=== PATIENT | female | born 1955 | race Caucasian/White ===

== ENCOUNTER 2020-02-01 05:24 | Observation (INO) | payer OTHER ==
[2020-02-01] MEDS ORDERED: MORPHINE 2 MG/ML SYR ONE (06:08)
[2020-02-01] MEDS ORDERED: ONDANSETRON 4 MG/2 ML VIAL ONE (06:08)
[2020-02-01 06:15] LABS: Protime INR 0.94
[2020-02-01 06:26] LABS: Basophils % 0.6 % (0-1.3); Hematocrit 41.5 % (36.0-45.0); Lymphocytes % 30.3 % (15.3-44.8); MPV 9.1 fL (7.6-11.3); RBC Red Blood Cell Count 4.66 M/uL (3.86-4.86)
[2020-02-01 06:35] LABS: ALT/SGPT 20 U/L (12-78); AST/SGOT 18 U/L (15-37); Albumin 3.5 g/dL (3.4-5.0); Alkaline Phosphatase 57 U/L (45-117); BUN Blood Urea Nitrogen 18 mg/dL (7-18); Bicarbonate 22 mmol/L (21-32); Bilirubin Direct < 0.1 mg/dL (0-0.2); Bilirubin Total 0.4 mg/dL (0.2-1.0); Glucose Level 94 mg/dL (74-106); NT PRO-BNP 80 pg/mL (<125); Potassium 3.6 mmol/L (3.5-5.1); Protein, Total 6.6 g/dL (6.4-8.2); Sodium Level 139 mmol/L (136-145); Troponin (Emerg Dept Use Only) < 0.02 ng/mL (0.0-0.045)
--- NOTE | 2020-02-01 07:12 | ER ---
Nurse's Notes [facility] Name: Vivi Nance Age: 64 yrs Sex: Female : 1955 Arrival Date: 02/01/2020 Time: 05:25 Bed 6 Private MD: Diagnosis: Chest pain, unspecified Presentation: 01/31 05:35 Chief complaint: Patient states: I am having chest pain on and off going to my left arm rr5 and left shoulder blade started 8PM last night. 05:35 Coronavirus screen: Patient denies shortness of breath or difficulty breathing. Patient rr5 denies measured and/or subjective temperature greater than 100.4F prior to today's visit. Patient denies travel on a cruise ship or to a country the [facility] currently lists as an affected area. Patient denies contact with known and/or suspected case of COVID-19. Proceed with normal triage. Ebola Screen: Patient negative for fever greater than or equal to 101.5 degrees Fahrenheit, and additional compatible Ebola Virus Disease symptoms Patient denies exposure to infectious person. Patient denies travel to an Ebola-affected area in the 21 days before illness onset. Initial Sepsis Screen: Does the patient meet any 2 criteria? No. Patient's initial sepsis screen is negative. Does the patient have a suspected source of infection? No. Patient's initial sepsis screen is negative. Risk Assessment: Do you want to hurt yourself or someone else? Patient reports no desire to harm self or others. Onset of symptoms was January 31, 2020 at 20:00. 05:35 Method Of Arrival: Ambulatory rr5 05:35 Acuity: EVIE 3 rr5 Historical: - Allergies: 05:35 No Known Allergies; rr5 - Home Meds: 05:35 clopidogrel 75 mg oral tab 1 tab once daily [Active]; nadolol 40 mg oral tab [Active]; rr5 estradiol 1 mg Oral tab [Active]; hydrochlorothiazide 25 mg Oral tab [Active]; - PMHx: 05:35 mitral valve prolapse; rr5 - PSHx: 05:35 Hysterectomy; cataract; rr5 - Immunization history:: Adult Immunizations up to date. - Social history:: Smoking status: Patient reports the use of cigarette tobacco products, smokes one-half pack cigarettes per day, Patient uses alcohol, occasionally. Patient/guardian denies using street drugs. Screenin:47 Abuse screen: Denies threats or abuse. Denies injuries from another. Nutritional rr5 screening: No deficits noted. Tuberculosis screening: No symptoms or risk factors identified. Fall Risk IV access (20 points). Total Phelan Fall Scale indicates No Risk (0-24 pts). Assessment: 05:35 General: Appears in no apparent distress. uncomfortable, Behavior is calm, cooperative, rr5 appropriate for age. 05:35 Pain: Complains of pain in left side chest Pain radiates to left scapular area and left rr5 arm Pain currently is 5 out of 10 on a pain scale. Quality of pain is described as pressure, Pain began gradually, Is intermittent. Neuro: Level of Consciousness is awake, alert, obeys commands, Oriented to person, place, time, situation. Cardiovascular: Reports chest pain, Capillary refill < 3 seconds Patient's skin is warm and dry. Respiratory: Airway is patent Respiratory effort is even, unlabored, Respiratory pattern is regular, symmetrical. GI: No signs and/or symptoms were reported involving the gastrointestinal system. : No signs and/or symptoms were reported regarding the genitourinary system. EENT: No signs and/or symptoms were reported regarding the EENT system. Derm: Skin is intact, is healthy with good turgor, Skin temperature is warm. Musculoskeletal: Circulation, motion, and sensation intact. Capillary refill < 3 seconds. 06:21 Reassessment: Del Nance () [id number]. rr5 07:00 Reassessment: RECD REPORT FROM KEEGAN DAY. 64YO WF P/W CP. CURRENT WORK-UP COMPLETED, bp INITIAL RESULTS UNREMARKABLE. 07:16 Reassessment: Patient is alert, oriented x 3, equal unlabored respirations, skin aa5 warm/dry/pink. Alexis Galicia NP (hospitalist) at bedside speaking to patient about POC upon admission to hospital. . 07:30 Reassessment: PT SEEN BY HOSPITALIST, ADMIT INITIATED. bp 07:56 Reassessment: Patient is alert, oriented x 3, equal unlabored respirations, skin aa5 warm/dry/pink. Ordered breakfast tray for patient. Pt sitting up in bed, states no complaints at this time. . 08:00 Reassessment: DR LIVE, CARDIOLOGY, AT B/S. bp 08:11 Reassessment: PER DR LIVE, PT CLEAR FOR D/C WITH OUTPATIENT F/U IF SECOND TROPONIN bp NEGATIVE AT 0900. 10:30 Reassessment: SECOND TROPONIN NEGATIVE, HOSPITALIST NOTIFIED. D/C PENDING. bp 11:11 Reassessment: Patient is alert, oriented x 3, equal unlabored respirations, skin aa5 warm/dry/pink. Vital Signs: 05:35 BP 146 / 66; Pulse 51; Resp 19; Temp 97.7; Pulse Ox 100% ; Weight 68.95 kg; Height 5 rr5 ft. 6 in. (167.64 cm); Pain 5/10; 06:09 BP 128 / 71; Pulse 55; Resp 16; Pulse Ox 96% ; rr5 06:47 BP 122 / 74; Pulse 51; Resp 14; Pulse Ox 96% ; Pain 3/10; rr5 08:01 BP 157 / 83; Pulse 50; Resp 16; Pulse Ox 98% ; bp 09:00 BP 127 / 60; Pulse 57; Resp 14; Pulse Ox 98% ; bp 10:00 BP 128 / 65; Pulse 54; Resp 16; Temp 97.9; Pulse Ox 96% ; bp 11:00 BP 127 / 83; Pulse 54; Resp 16 S; Temp 97.5(TE); Pulse Ox 96% on R/A; Pain 0/10; aa5 05:35 Body Mass Index 24.53 (68.95 kg, 167.64 cm) rr5 ED Course: 05:25 Patient arrived in ED. ds1 05:28 Andrew Bautista, BARB is Primary Nurse. rr5 05:41 Triage completed. rr5 05:43 Arm band placed on right wrist. EKG completed in triage. Results shown to MD. rr5 05:44 Jarek Blancas MD is Attending Physician. mh7 05:47 Patient has correct armband on for positive identification. Placed in gown. Bed in low rr5 position. classroom monitor on. Pulse ox on. NIBP on. 05:47 Patient maintains SpO2 saturation greater than 95% on room air. rr5 05:57 EKG done, by ED staff, reviewed by Jarek Blancas MD. Inserted saline lock: 20 gauge in ds4 left wrist, using aseptic technique. Blood collected. 06:01 Troponin (emerg Dept Use Only) Sent. ds4 06:01 PT-INR Sent. ds4 06:01 NT PRO-BNP Sent. ds4 06:05 XRAY Chest (1 view) In Process Unspecified. EDMS 07:11 Alexis Galicia FNP-C is Hospitalizing Provider. 7 09:23 Troponin (emerg Dept Use Only) Sent. 5 09:42 Primary Nurse role handed off by Andrew Bautista, BARB 09:42 Deshawn Barragan, RN is Primary Nurse. bp 10:00 Patient admitted, IV remains in place. aa5 10:00 No provider procedures requiring assistance completed. aa5 Administered Medications: 06:05 Drug: Zofran (Ondansetron) 4 mg Route: IVP; Site: left forearm; rr5 06:46 Follow up: Response: No adverse reaction rr5 06:07 Drug: morphine 2 mg {Note: rass 0.} Route: IVP; Site: left forearm; rr5 06:46 Follow up: Response: No adverse reaction; Pain is decreased; RASS: Alert and Calm (0) rr5 07:17 Drug: Aspirin Chewable Tablet 162 mg Route: PO; aa5 07:31 Follow up: Response: No adverse reaction bp Outcome: 07:11 Decision to Hospitalize by Provider. mh7 10:00 Admitted to ER Hold. Please see [facility] for further documentation. aa5 10:00 Condition: stable aa5 10:00 Instructed on the need for admit. 11:11 Patient left the ED. aa5 Signatures: Dispatcher [facility] Sheila Aaron ds1 Ana Ross RN RN aa5 Gaudencio Lyon ds4 Pennie Marks 5 Deshawn Barragan, BARB RN Andrew Bautista, BARB RN rr5 Jarek Blancas MD MD 7 Corrections: (The following items were deleted from the chart) 11:22 11:22 Patient left the ED. aa5 aa5
--- NOTE | 2020-02-01 07:12 | EDPHYS ---
Physician Documentation [facility] Name: Vivi Nance Age: 64 yrs Sex: Female : 1955 Arrival Date: 02/01/2020 Time: 05:25 Bed 6 Private MD: ED Physician Jarek Blancas HPI: 01/31 05:55 This 64 yrs old Female presents to ER via Ambulatory with complaints of Chest mh7 Pain. 05:55 The patient or guardian reports chest pain that is located primarily in the anterior mh7 chest wall, left. Onset: last night. The pain radiates to the left arm. Associated signs and symptoms: Pertinent positives: nausea, shortness of breath, Pertinent negatives: abdominal pain, cough, diaphoresis, dizziness, headache, lower extremity pain, lower extremity swelling, lightheadedness, near syncope, palpitations, recent travel, syncope, vomiting. The chest pain is described as a pressure. Duration: The patient or guardian reports multiple episodes, that are intermittent, that wax and wane, with no pattern. Modifying factors: The symptoms are alleviated by nothing. the symptoms are aggravated by nothing. Severity of pain: At its worst the pain was moderate last night, in the emergency department the pain has improved moderately. Historical: - Allergies: 05:35 No Known Allergies; rr5 - Home Meds: 05:35 clopidogrel 75 mg oral tab 1 tab once daily [Active]; nadolol 40 mg oral tab [Active]; rr5 estradiol 1 mg Oral tab [Active]; hydrochlorothiazide 25 mg Oral tab [Active]; - PMHx: 05:35 mitral valve prolapse; rr5 - PSHx: 05:35 Hysterectomy; cataract; rr5 - Immunization history:: Adult Immunizations up to date. - Social history:: Smoking status: Patient reports the use of cigarette tobacco products, smokes one-half pack cigarettes per day, Patient uses alcohol, occasionally. Patient/guardian denies using street drugs. ROS: 05:55 Constitutional: Negative for fever, chills, and weight loss, Eyes: Negative for injury, mh7 pain, redness, and discharge, ENT: Negative for injury, pain, and discharge, Neck: Negative for injury, pain, and swelling, Back: Negative for injury and pain, : Negative for injury, bleeding, discharge, and swelling, MS/Extremity: Negative for injury and deformity, Skin: Negative for injury, rash, and discoloration, Neuro: Negative for headache, weakness, numbness, tingling, and seizure, Psych: Negative for depression, anxiety, suicide ideation, homicidal ideation, and hallucinations, Allergy/Immunology: Negative for hives, rash, and allergies, Endocrine: Negative for neck swelling, polydipsia, polyuria, polyphagia, and marked weight changes, Hematologic/Lymphatic: Negative for swollen nodes, abnormal bleeding, and unusual bruising. Exam: 05:55 Constitutional: This is a well developed, well nourished patient who is awake, alert, mh7 and in no acute distress. Head/Face: Normocephalic, atraumatic. Eyes: Pupils equal round and reactive to light, extra-ocular motions intact. Lids and lashes normal. Conjunctiva and sclera are non-icteric and not injected. Cornea within normal limits. Periorbital areas with no swelling, redness, or edema. Neck: Trachea midline, no thyromegaly or masses palpated, and no cervical lymphadenopathy. Supple, full range of motion without nuchal rigidity, or vertebral point tenderness. No Meningismus. Chest/axilla: Normal chest wall appearance and motion. Nontender with no deformity. No lesions are appreciated. 05:55 Respiratory: Lungs have equal breath sounds bilaterally, clear to auscultation and percussion. No rales, rhonchi or wheezes noted. No increased work of breathing, no retractions or nasal flaring. Abdomen/GI: Soft, non-tender, with normal bowel sounds. No distension or tympany. No guarding or rebound. No evidence of tenderness throughout. Back: No spinal tenderness. No costovertebral tenderness. Full range of motion. Skin: Warm, dry with normal turgor. Normal color with no rashes, no lesions, and no evidence of cellulitis. MS/ Extremity: Pulses equal, no cyanosis. Neurovascular intact. Full, normal range of motion. Neuro: Awake and alert, GCS 15, oriented to person, place, time, and situation. Cranial nerves II-XII grossly intact. Motor strength 5/5 in all extremities. Sensory grossly intact. Cerebellar exam normal. Normal gait. Psych: Awake, alert, with orientation to person, place and time. Behavior, mood, and affect are within normal limits. 05:55 Cardiovascular: Rate: bradycardic, Rhythm: regular, Pulses: no pulse deficits are appreciated, Heart sounds: normal, normal S1and S2, Edema: is not appreciated, JVD: is not appreciated. 05:55 ECG was reviewed by the Attending Physician. Vital Signs: 05:35 BP 146 / 66; Pulse 51; Resp 19; Temp 97.7; Pulse Ox 100% ; Weight 68.95 kg; Height 5 rr5 ft. 6 in. (167.64 cm); Pain 5/10; 06:09 BP 128 / 71; Pulse 55; Resp 16; Pulse Ox 96% ; rr5 06:47 BP 122 / 74; Pulse 51; Resp 14; Pulse Ox 96% ; Pain 3/10; rr5 08:01 BP 157 / 83; Pulse 50; Resp 16; Pulse Ox 98% ; bp 09:00 BP 127 / 60; Pulse 57; Resp 14; Pulse Ox 98% ; bp 10:00 BP 128 / 65; Pulse 54; Resp 16; Temp 97.9; Pulse Ox 96% ; bp 11:00 BP 127 / 83; Pulse 54; Resp 16 S; Temp 97.5(TE); Pulse Ox 96% on R/A; Pain 0/10; aa5 05:35 Body Mass Index 24.53 (68.95 kg, 167.64 cm) rr5 MDM: 05:51 Patient medically screened. [facility] 07:08 Differential diagnosis: acute myocardial infarction, acute pericarditis, anxiety, mh7 coronary artery disease chest wall pain, costochondritis, pleurisy, pneumonia, pneumothorax. HEART Score: History: Highly Suspicious (2), ECG: Normal (0), Age: > 45 and < 65 years (1), Risk Factors: 1 or 2 risk factors (1), [Active Smoker] Troponin: < or = 1 x Normal Limit (0), Total Score = 4. Data reviewed: vital signs, nurses notes, lab test result(s), cardiac enzymes, CBC, electrolytes, EKG, radiologic studies, plain films. Data interpreted: Pulse oximetry: on room air is 96 %. Interpretation: normal. 07:10 Counseling: I had a detailed discussion with the patient and/or guardian regarding: the [facility] historical points, exam findings, and any diagnostic results supporting the discharge/admit diagnosis, lab results, radiology results, the need for further work-up and treatment in the hospital. Response to treatment: the patient's symptoms have mildly improved after treatment. 07:11 The patient was given aspirin in the Emergency Department. mh7 01/31 05:44 Order name: Basic Metabolic Panel; Complete Time: 06:40 rr5 01/31 05:44 Order name: CBC with Diff; Complete Time: 06:40 rr5 01/31 05:44 Order name: LFT's; Complete Time: 06:40 rr5 01/31 05:44 Order name: Magnesium; Complete Time: 06:40 rr5 01/31 05:44 Order name: NT PRO-BNP; Complete Time: 06:40 rr5 01/31 05:44 Order name: PT-INR; Complete Time: 06:40 rr5 01/31 05:44 Order name: Troponin (emerg Dept Use Only); Complete Time: 06:40 rr5 01/31 05:44 Order name: XRAY Chest (1 view); Complete Time: 10:16 rr5 01/31 05:44 Order name: EKG; Complete Time: 05:45 rr5 01/31 08:10 Order name: Troponin (emerg Dept Use Only) bp 01/31 09:58 Order name: Troponin (Emerg Dept Use Only); Complete Time: 10:16 EDMS 01/31 05:44 Order name: Cardiac monitoring; Complete Time: 06:00 rr5 01/31 05:44 Order name: EKG - Nurse/Tech; Complete Time: 06:00 rr5 01/31 05:44 Order name: IV Saline Lock; Complete Time: 06:00 rr5 01/31 05:44 Order name: Labs collected and sent; Complete Time: 06:00 rr5 01/31 05:44 Order name: O2 Per Protocol; Complete Time: 06:00 rr5 01/31 05:44 Order name: O2 Sat Monitoring; Complete Time: 06:00 rr5 01/31 07:56 Order name: Diet Regular; Complete Time: 07:57 aa5 EC:55 Rate is 53 beats/min. Rhythm is regular, Sinus bradycardia. QRS Eleva is Normal. OR mh7 interval is normal. QRS interval is normal. QT interval is normal. No Q waves. T waves are Normal. No ST changes noted. Clinical impression: Sinus bradycardia. Administered Medications: 06:05 Drug: Zofran (Ondansetron) 4 mg Route: IVP; Site: left forearm; rr5 06:46 Follow up: Response: No adverse reaction rr5 06:07 Drug: morphine 2 mg {Note: rass 0.} Route: IVP; Site: left forearm; rr5 06:46 Follow up: Response: No adverse reaction; Pain is decreased; RASS: Alert and Calm (0) rr5 07:17 Drug: Aspirin Chewable Tablet 162 mg Route: PO; aa5 07:31 Follow up: Response: No adverse reaction bp Disposition: 02/01/20 07:11 Hospitalization ordered by Alexis Galicia for Observation. Preliminary diagnosis is Chest pain, unspecified. - Bed requested for Telemetry/MedSurg (observation). - Status is Observation. aa5 - Condition is Stable. - Problem is new. - Symptoms have improved. Signatures: Dispatcher [employer] EDMS Christian Montelongo MD MD cha Calderon, Audri RN RN aa5 Santino Matias RN RN ja1 Kina Maya Raymond, RN RN rr5 Jarek Blancas MD MD 7 Deshawn Barragan RN bp Corrections: (The following items were deleted from the chart) 08:53 07:11 Hospitalization Ordered by Alexis CHAUDHARY for Observation. Preliminary eb diagnosis is Chest pain, unspecified. Bed requested for Telemetry/MedSurg (observation). Status is Observation. Condition is Stable. Problem is new. Symptoms have improved. [facility] 10:02 08:53 02/01/2020 07:11 Hospitalization Ordered by Alexis CHAUDHARY for Observation. ja1 Preliminary diagnosis is Chest pain, unspecified. Bed requested for Telemetry/MedSurg (observation). Status is Observation. Condition is Stable. Problem is new. Symptoms have improved. eb 11:22 10:02 02/01/2020 07:11 Hospitalization Ordered by Alexis CHAUDHARY for Observation. aa5 Preliminary diagnosis is Chest pain, unspecified. Bed requested for Telemetry/MedSurg (observation). Status is Observation. Condition is Stable. Problem is new. Symptoms have improved. ja1
[2020-02-01] MEDS ORDERED: ASPIRIN 81 MG CHEWABLE TABLET ONE (07:24)
--- NOTE | 2020-02-01 07:39 | P.HP ---
Certification for Inpatient Patient admitted to: Observation With expected LOS: <2 Midnights Patient will require the following post-hospital care: None Practitioner: I am a practitioner with admitting privileges, knowledge of patient current condition, hospital course, and medical plan of care. Services: Services provided to patient in accordance with Admission requirements found in Title 42 Section 412.3 of the Code of Federal Regulations Patient History Date of Service: 02/01/20 Primary Care Provider: Dr. Hernandez Reason for admission: Chest pain History of Present Illness: 64-year-old female with history of mitral valve prolapse and TIA presents the emergency department for 4 day history of intermittent left-sided chest pain that radiates to the left arm. Patient reports that she had similar pain approximately 2 years ago and was admitted for observation. Patient is not since followed up with Cardiology. Patient reports last cardiology workup with stress test and echocardiogram was approximately 20 years ago. Patient currently on Plavix for history of TIA. Initial troponin negative. Patient be admitted for further evaluation and management. Home medications list reviewed: Yes - Past Medical/Surgical History Has patient received pneumonia vaccine in the past: No -: TIA -: Hypertension -: MVP -: Hysterectomy -: Laparoscopy -: Cataract surgery Psychosocial/ Personal History: Patient lives at home with her . - Family History Father -: Heart disease Mother -: Heart disease, Stroke - Social History Smoking Status: Current every day smoker Alcohol use: Yes CD- Drugs: No Caffeine use: Yes Place of Residence: Home Review of Systems 10-point ROS is otherwise unremarkable General: Weakness Cardiovascular: Chest Pain Physical Examination - Physical Exam General: Alert, In no apparent distress, Oriented x3 HEENT: Atraumatic, Normocephalic Neck: Supple Respiratory: Clear to auscultation bilaterally, Normal air movement Cardiovascular: No edema, Normal pulses, Regular rate/rhythm, Normal S1 S2 Capillary refill: <2 Seconds Gastrointestinal: Normal bowel sounds, Soft and benign Musculoskeletal: No contractures, No erythema, No tenderness Integumentary: No significant lesion, No tenderness/swelling, No erythema Neurological: Normal gait, Normal speech, Normal strength at 5/5 x4 extr, Normal tone, Sensation intact - Studies Laboratory Data (last 24 hrs) 02/01/20 05:57: PT 11.1, INR 0.94 02/01/20 05:57: WBC 6.5, Hgb 13.9, Hct 41.5, Plt Count 199 02/01/20 05:57: Sodium 139, Potassium 3.6, BUN 18, Creatinine 0.63, Glucose 94, Magnesium 2.0, Total Bilirubin 0.4, AST 18, ALT 20, Alkaline Phosphatase 57 Assessment and Plan - Plan Assessment Chest pain Hypertension History of TIA Plan Chest pain: Cardiology consult in place, spoke with master welder this morning. Continue patient's Plavix, and aspirin. Continue beta-bandar therapy. Will try and troponins. Patient to remain on telemetry throughout this hospitalization. If troponins are negative and patient is cleared by cardiology anticipate discharge as early as this evening. Will recommend outpatient follow up with cardiology for further investigation. DVT prophylaxis Lovenox 40 mg subcutaneous once daily. Hypertension: Continue patient's beta-bandar History of TIA: Continue patient's beta bandar and Plavix. Discharge Plan: Home Plan to discharge in: 24 Hours - Advance Directives Does patient have a Living Will: No Does patient have a Durable POA for Healthcare: No - Code Status/Comfort Care Code Status Assessed: Yes Critical Care: No Time Spent Managing Pts Care (In Minutes): 55
--- NOTE | 2020-02-01 08:49 | RAD REPORT ---
EXAM DESCRIPTION: RAD - Chest Single View - 02/01/2020 6:05 am CLINICAL HISTORY: CHEST PAIN COMPARISON: None TECHNIQUE: AP portable chest image was obtained 02/01/2020 6:05 am . FINDINGS: Lungs are clear. Heart and vasculature are normal. No measurable pleural effusion and no p neumothorax. No acute bone finding. Patient has a very prominent right convex lower thoracic scoliosi s. No acute aortic findings suspected. IMPRESSION: No acute cardiopulmonary process.
--- NOTE | 2020-02-01 09:40 | CON ---
Date of Consultation: 02/01/2020 Reason For Consultation: Chest pain. History Of Present Illness: Ms. Nance is a 64-year-old white woman, who has a history of mitral valve prolapse, TIA, and COPD. Apparently had some chest pain that is similar to this about 2-3 year s ago and she was ruled out for CA, but no workup was done then. She sees Dr. Kaleb Hernandez in [place] for primary care. She came in with persistent left upper chest pain with some nausea, but no vomitin g, diaphoresis, shortness of breath, palpitation, pedal edema, PND, or orthopnea. She denied fever, chills, or cough. The pain has been persistent for 4 days. It is unrelated to physical activities, food, time of the day, or body position. She is already ruled out for myocardial infarction. Allergies: NONE. Review of Systems: Negative. Social History: Positive for tobacco. Family History: Positive for heart disease on both sides of her family. Medications: At home include nadolol, Plavix, and hydrochlorothiazide. Physical Examination: Vital Signs: Stable. She was afebrile. She was in a sinus rhythm. HEENT: Negative. Neck: Supple with no bruit, lymphadenopathy, JVD, or thyromegaly. Chest: Clear to auscultation and percussion. Cardiac: Regular rhythm and rate. No murmurs, gallops, or rubs. Abdomen: Benign. Extremities: No clubbing, cyanosis, or edema. Diagnostic Data: All normal. Chest x-ray, EKG, troponin, BNP are negative. Impression And Plan: 1.Atypical chest pain in a patient with history of mitral valve prolapse, strong family history of h eart disease, and positive tobacco use. 2.History of chronic obstructive pulmonary disease. 3.History of transient ischemic attack. I am comfortable with Ms. Nance going home today on her home regimen, including her nadolol, hydr ochlorothiazide, and Plavix. I will set her up for an outpatient echocardiogram and a stress Myoview . The case was discussed with her in detail and with Dr. Meeks. AJ/JAEL Voice ID: [id number] Report ID: [id number]
--- NOTE | 2020-02-01 10:13 | P.DS ---
Admission Date: 02/01/20 Discharge Date: 02/01/20 Primary Care Provider: Dr. Hernandez Disposition: ROUTINE DISCHARGE Discharge Condition: GOOD Reason for Admission: Chest pain Consultations: Cardiology- Dr. Sorto Procedures: Chest x-ray FINDINGS: Lungs are clear. Heart and vasculature are normal. No measurable pleural effusion and no pneumothorax. No acute bone finding. Patient has a very prominent right convex lower thoracic scoliosis. No acute aortic findings suspected. IMPRESSION: No acute cardiopulmonary process. Medical problem list Chest pain History of TIA Mitral valve prolapse Hypertension Brief History of Present Illness: 64-year-old female with history of mitral valve prolapse and TIA presents the emergency department for 4 day history of intermittent left-sided chest pain that radiates to the left arm. Patient reports that she had similar pain approximately 2 years ago and was admitted for observation. Patient is not since followed up with Cardiology. Patient reports last cardiology workup with stress test and echocardiogram was approximately 20 years ago. Patient currently on Plavix for history of TIA. Initial troponin negative. Patient be admitted for further evaluation and management. Hospital Course: Patient was admitted for observation this morning. Patient has done well throughout the morning, 2nd troponin came back negative. Cardiology has seen the patient and would prefer to arrange for outpatient workup including stress test and echocardiogram. Patient is amenable Plan, also in stable this time. Recommend daily aspirin in addition to patient's Plavix at this time. Continue beta-bandar therapy. Strict return precautions given for new or worsening symptoms. General: Alert, In no apparent distress HEENT: Atraumatic, PERRLA, EOMI Neck: Supple, JVD not distended Respiratory: Clear to auscultation bilaterally, Normal air movement Cardiovascular: Regular rate/rhythm, Normal S1 S2 Gastrointestinal: Normal bowel sounds, No tenderness Musculoskeletal: No tenderness Integumentary: No rashes Neurological: Normal speech, Normal tone, Normal affect Laboratory Data at Discharge: WBC 6.5 K/uL (4.3-10.9) 02/01/20 05:57 Hgb 13.9 g/dL (12.0-15.0) 02/01/20 05:57 Hct 41.5 % (36.0-45.0) 02/01/20 05:57 Plt Count 199 K/uL (152-406) 02/01/20 05:57 PT 11.1 SECONDS (9.5-12.5) 02/01/20 05:57 INR 0.94 02/01/20 05:57 Sodium 139 mmol/L (136-145) 02/01/20 05:57 Potassium 3.6 mmol/L (3.5-5.1) 02/01/20 05:57 BUN 18 mg/dL (7-18) 02/01/20 05:57 Creatinine 0.63 mg/dL (0.55-1.3) 02/01/20 05:57 Glucose 94 mg/dL (74-106) 02/01/20 05:57 Magnesium 2.0 mg/dL (1.8-2.4) 02/01/20 05:57 Total Bilirubin 0.4 mg/dL (0.2-1.0) 02/01/20 05:57 AST 18 U/L (15-37) 02/01/20 05:57 ALT 20 U/L (12-78) 02/01/20 05:57 Alkaline Phosphatase 57 U/L (45-117) 02/01/20 05:57 Patient Discharge Instructions: 1. Please follow up their primary care doctor to follow up this hospitalization. 2. Please follow up with cardiology clinic for further evaluation. 3. Patient was admitted for observation this morning. Patient has done well throughout the morning, 2nd troponin came back negative. Cardiology has seen the patient and would prefer to arrange for outpatient workup including stress test and echocardiogram. Patient is amenable Plan, also vital signs stable at this time. Recommend daily aspirin in addition to patient's Plavix at this time. Continue beta-bandar therapy. Strict return precautions given for new or worsening symptoms. Diet: AHA Activity: Ad olesya Time spent managing pt's care (in minutes): 55
[2020-02-01 11:34] VITALS: O2SAT 96
[2020-02-01 11:35] VITALS: BP 127/83; TEMP 97.5
--- NOTE | 2020-02-02 07:27 | EKG ---
Test Date: 2020-02-01 Test Time: 05:37:40 Typists Supervisor: LUCILA MEASUREMENT RESULTS: Intervals: Rate: 53 DC: 172 QRSD: 90 QT: 440 QTc: 412 [place]: P: 51 DC: 172 QRS: 37 T: 72 INTERPRETIVE STATEMENTS: Sinus bradycardia Otherwise normal ECG No previous ECG available for comparison Electronically Signed On 02-02-20 07:25:21 CDT by Ousmane Sorto
== END 2020-02-01 11:10 | disposition home or self-care (01) ==
LOC: ER 05:24 → ERHOLD 07:30
PROVIDERS: ADMIT Family Medicine; ATTEND Family Medicine
DX: R07.89 Other chest pain (principal); R00.1 Bradycardia, unspecified; I10 Essential (primary) hypertension; I34.1 Nonrheumatic mitral (valve) prolapse; F17.210 Nicotine dependence, cigarettes, uncomplicated; Z79.02 Long term (current) use of antithrombotics/antiplatelets; Z79.890 Hormone replacement therapy; Z79.899 Other long term (current) drug therapy; Z86.73 Personal history of transient ischemic attack (TIA), and cerebral infarction without residual deficits; Z82.49 Family history of ischemic heart disease and other diseases of the circulatory system; Z87.09 Personal history of other diseases of the respiratory system
CPT/HCPCS: 93005; 85025; 80048; 36415; 83735; 85610; 80076; 84484 ×2; 83880; 71045; 96375; 96374; 99285; J2270; J2405; G0378 ×2

== ENCOUNTER 2020-03-20 06:30 | Day surgery (SDC) | payer OTHER ==
[2020-03-19 12:54] LABS: Absolute Lymphocytes (CBC) 1.5 K/uL (0.7-4.9); Hematocrit 31.6 % (36.0-45.0); Lymphocytes % 21.2 % (15.3-44.8); MPV 7.6 fL (7.6-11.3); RBC Red Blood Cell Count 3.56 M/uL (3.86-4.86)
[2020-03-19 13:06] LABS: Potassium 3.7 mmol/L (3.5-5.1)
--- NOTE | 2020-03-19 13:20 | RAD REPORT ---
EXAM DESCRIPTION: RAD - Chest Pa And Lat (2 Views) - 03/19/2020 12:51 pm CLINICAL HISTORY: pre op, pending left lower leg surgery with wound debridement COMPARISON: Portable January 31 TECHNIQUE: Frontal and lateral views of the chest were obtained. FINDINGS: The lungs are clear. Interstitial pattern matches comparison. Heart size is normal and ce ntral vasculature is within normal limits. No pleural effusion or pneumothorax seen. No acute bony finding noted. Prominent right convex lower thoracic scoliosis again noted. No aortic abnormality. IMPRESSION: No acute cardiopulmonary process. No significant change from comparison.
--- OUTSIDE RECORDS SUMMARY | 2020-03-20 06:33 | XMS REPORT | Clinical Summary ---
:1955 Author Organization [facility] Address [address] [place] [address] Care Team Providers Name Role Phone Jamari Hernanedz MD Primary Care Provider Allergies Active Allergy Reactions Severity Noted Date Comments No Known Drug Allergies 08/31/2015 Other Food Itching Low 06/21/2018 seafood Medications Medication Sig Dispensed Refills Start End Status Date Date estradiol (ESTRACE) 1 1 mg every 0 Active MG tablet evening. 6 Take 1/2 tablet daily multivitamin Take 1 0 Active (THERAGRAN) tablet tablet by mouth every evening. UNABLE TO FIND daily. Tru 0 Act thompson Red UNABLE TO FIND daily. 0 Activ e Tumeric hydroCHLOROthiazide daily. 0 Active (HYDRODIURIL) 25 MG tablet clopidogreL (PLAVIX) 75 TAKE 1 90 tablet 1 Active mg tablet TABLET BY 0 MOUTH EVERY DAY CHANTIX 1 mg tablet TAKE 1 56 tablet 2 Active TABLET (1 MG 0 TOTAL) BY MOUTH 2 (TWO) TIMES A DAY FOR 90 DAYS. TAKE WITH FULL GLASS OF WATER. fluticasone propionate SPRAY 2 16 mL 0 Active (FLONASE) 50 SPRAYS INTO 0 mcg/actuation nasal EACH NOSTRIL spray EVERY DAY nadoloL (CORGARD) 40 MG TAKE 3 270 tablet 0 Active tablet TABLETS BY 0 MOUTH EVERY DAY nadolol (CORGARD) 40 MG TAKE 3 270 tablet 0 06/10 Discontinued tablet TABLETS BY 9 019 (Reorder) MOUTH ONCE DAILY clopidogrel (PLAVIX) 75 Take 1 90 tablet 0 Discontinued mg tablet tablet (75 9 019 (Reorder) mg total) by mouth daily. HYDROcodone-acetaminoph Take 1 90 tablet 0 en (NORCO) 5-325 mg per tablet by 9 019 tablet mouth every 8 (eight) hours as needed for moderate pain for up to 30 days. Max Daily Amount: 3 tablets clopidogrel (PLAVIX) 75 Take 1 90 tablet 0 Discontinued mg tablet tablet (75 9 019 (Reorder) mg total) by mouth daily. nadolol (CORGARD) 40 MG Take 3 270 tablet 0 08/02 Discontinued tablet tablets (120 9 020 (Reorde r) mg total) by mouth daily. clopidogrel (PLAVIX) 75 Take 1 90 tablet 0 Discontinued mg tablet tablet (75 9 020 (Reorder) mg total) by mouth daily. varenicline (CHANTIX Take 0.5 mg 53 tablet 0 Discontinued STARTING MONTH BOX) 0.5 one daily on 0 020 mg (11)- 1 mg (42) days 1-2 and tablet 0.5 mg twice daily on days 4-7. Then 1 mg twice daily for a total of 12 weeks. varenicline (CHANTIX Take 1 60 tablet 2 Discontinued CONTINUING MONTH BOX) 1 tablet (1 mg 0 020 mg tablet total) by mouth 2 (two) times a day for 90 days. Take with full glass of water. nadolol (CORGARD) 40 MG Take 3 270 tablet 3 09/05 Discontinued tablet tablets (120 0 020 mg total) by mouth daily. clopidogreL (PLAVIX) 75 Take 1 90 tablet 3 Discontinued mg tablet tablet (75 0 020 mg total) by mouth daily. nadoloL (CORGARD) 40 MG TAKE 3 90 tablet 2 Discontinued tablet TABLETS BY 0 020 (Reorder) MOUTH DAILY nadoloL (CORGARD) 40 MG Take 3 270 tablet 2 12/01 Discontinued tablet tablets (120 0 020 mg total) by mouth daily. amoxicillin-pot Take 1 14 tablet 0 Expi red clavulanate (AUGMENTIN) tablet by 0 020 875-125 mg per tablet mouth 2 (two) times a day for 7 days. fluticasone propionate 2 sprays 15.8 mL 0 Discontinued (FLONASE) 50 (100 mcg 0 020 mcg/actuation nasal total) by spray Each Nare route daily. fluticasone propionate SPRAY 2 16 mL 0 Discontinued (FLONASE) 50 SPRAYS INTO 0 020 mcg/actuation nasal EACH NOSTRIL spray EVERY DAY Active Problems Problem Noted Date Nephrolithiasis 07/17/2019 Menopausal syndrome 11/24/2017 Low back pain 08/31/2015 Multinodular goiter 08/31/2015 Tobacco dependence syndrome 09/13/2012 Recurrent major depressive disorder, in full remission 02/02/2012 Genital herpes simplex 02/02/2012 Encounter for health maintenance examination in adult 09/13/2011 Lumbosacral neuritis 02/22/2011 Disorder of mitral valve 02/22/2011 History of TIA (transient ischemic attack) 02/22/2011 Resolved Problems Problem Noted Date Resolved Date Chest pain in adult 06/21/2018 07/17/2019 Chest pain at rest 06/21/2018 07/17/2019 Encounters Date Type Specialty Care Team Description 03/11/2020 Travel 01/29/2020 Hospital Encounter Radiology Case Hernandez Pneumon tram Kauffman MD 01/29/2020 Travel 01/28/2020 Orders Only Internal Medicine Case Hernandez tis (Primary A., Dx) 01/28/2020 Travel 01/13/2020 Office Visit Orthopedic Surgery Yolanda Dodge rative arthritis MD Amanda of thumb, right (Primary Dx) 01/13/2020 Orders Only Orthopedic Surgery Aretha Mcdonald, Thumb p ain, right MA (Primary Dx) 01/13/2020 Travel 12/26/2019 Hospital Encounter Radiology Randi, Calculus of kidney Ralph Kauffman MD 12/26/2019 Travel 12/26/2019 Transcribe Orders Access Randi, Calculus o f kidney Ralph Kauffman MD (Primary Dx) 12/09/2019 Office Visit Orthopedic Surgery Yolanda Dodge Arthri tis of carpometacarpal (CMC) joint of left thumb (Primary Dx); MD Amanda Trigger ring fi nger of right hand 12/09/2019 Travel 12/01/2019 Refill Internal Medicine Case Hernandez MD 11/22/2019 Travel 11/12/2019 Refill Internal Medicine Case Hernandez MD 10/16/2019 Refill Internal Medicine Case Hernandez MD 09/24/2019 Telemedicine Internal Medicine Case Hernandez n (Primary Dx) MD Jamari 09/24/2019 Travel 09/23/2019 Refill Internal Medicine Case Hernandez MD 09/12/2019 Orders Only Internal Medicine Kenia Segovia MA 09/05/2019 Refill Internal Medicine Case Hernandez MD 09/02/2019 Refill Internal Medicine Case Hernandez MD 09/02/2019 Refill Internal Medicine Case Hernandez MD 08/14/2019 Orders Only Internal Medicine Case Hernandez MD 08/05/2019 Telephone Internal Medicine Case Hernandez MD 08/02/2019 Orders Only Internal Medicine Kenia Segovia MA 07/26/2019 Hospital Encounter Radiology Case Hernandez MD 07/17/2019 Office Visit Internal Medicine Case Hernandez r for general adult medical examination with abnormal findings (Primary Dx); MD Jamari Thumb tendoniti s; Tobacco depende nce syndrome; Multinodular go iter; History of TIA (transient ischemic attack); Nephrolithiasis ; Diabetes mellit us screening; Need for Tdap v accination 06/10/2019 Orders Only Internal Medicine Kenia Segovia MA 04/16/2019 Hospital Encounter Radiology Randi, Renal sarah culus Ralph Kauffman MD 04/16/2019 Transcribe Orders Access Randi, Renal calc ulus Ralph Kauffman MD (Primary Dx) 03/26/2019 Orders Only Internal Medicine Kenia Segovia MA after 03/20/2019 Immunizations Name Administration Dates Next Due Influenza Trivalent 07/22/2009, 04/03/2008 Td 07/22/2009, 03/24/2009 Tdap 07/17/2019 Family History Medical History Relation Name Comments Bipolar disorder Brother Diabetes Father Shen Nazario Heart disease Father Shen Nazario Heart Disease Hyperlipidemia Father Shen Nazario Cancer Maternal Grandmother Adeline Morales Throat Canc er Heart disease Mother Dania Gilliam of Heart At tack Stroke Mother Dania Gilliam Heart disease Paternal Grandfather Alex Nazario of Hea rt Attack Cancer Paternal Grandmother Dionne Nazario ? Breast Ca ncer Hepatitis Sister C Relation Name Status Comments Brother Alive Father Shen Nazario coronary arterio sclerosis Maternal Grandfather Maternal Grandmother Adeline Morales Mother Dania Gilliam Paternal Grandfather Alex Nazario coronary ar teriosclerosis Paternal Grandmother Dionne Nazario cerebrovasc ular accident Sister Alive Social History Tobacco Use Types Packs/Day Years Used Date Former Smoker Cigarettes 0.75 45 07/10/1972 - 0 09/17/2019 Smokeless Tobacco: Never Used Tobacco Cessation: Counseling Given: Yes Comments: stopped a week ago with chanti x (still taking) Alcohol Use Drinks/Week oz/Week Comments Yes 0 Glasses of wine 4.0 2 Cans of beer 0 Shots of liquor 2 Standard drinks or equivalent Sex Assigned at Date Recorded Female 07/09/2019 9:09 AM [employer] Job Start Date Occupation Industry Not on file Not on file Not on file Travel History Travel Start Travel End No recent travel history available. COVID-19 Exposure Response Date Recorded In the last month, have you been in contact with No / Unsure 03/11/2020 2:30 PM CDT someone who was confirmed or suspected to have Coronavirus / COVID-19? Last Filed Vital Signs Vital Sign Reading Time Taken Comments Blood Pressure 126/63 07/17/2019 9:02 AM [employer] Pulse 54 07/17/2019 9:02 AM [employer] Temperature - - Respiratory Rate - - Oxygen Saturation - - Inhaled Oxygen Concentration - - Weight 69 kg (152 lb 3.2 oz) 07/17/2019 9:02 AM [employer] Height 167.6 cm (5' 6") 07/17/2019 9:02 AM [employer] Body Mass Index 24.57 07/17/2019 9:02 AM [employer] Plan of Treatment Date Type Specialty Care Team Description 03/23/2020 Office Visit Internal Medicine Case Hernandez MD [address] [facility] [address] [place], [place] [address] [phone] 03/23/2020 Office Visit Orthopedic Surgery Soren Stallings MD [address] [place], [place] [address] [phone] Health Maintenance Due Date Last Done Comments SHINGLES VACCINES (#1) 10/21/2005 INFLUENZA VACCINE 04/09/2020 07/22/2009, 04/03/2008 COLONOSCOPY SCREENING 11/21/2020 02/22/2006 Postponed from 02/23/2016 (Not Indicated) STOOL DNA (COLOGUARD) 11/21/2020 11/21/2017 BREAST CANCER SCREENING 03/10/2021 03/10/2019, 06/21/2017 CERVICAL CANCER SCREENING 03/10/2022 03/10/2019, 06/21/2017 Procedures Procedure Name Priority Date/Time Associated Diagnosis Comme nts CT CHEST WO CONTRAST Routine 01/29/2020 3:26 Pneumonitis Res ults for this PM CDT procedure are i n the results section. AK ARTHROCENTESIS Routine 01/13/2020 3:00 Degenerative arthri tis Results for this ASPIR&/INJ INTERM PM CDT of thumb, right procedu re are in JT/BURS W/O US the results section. XR FINGER 2+ VW RIGHT Routine 01/13/2020 2:33 Thumb pain, rig ht Results for this PM CDT procedure are i n the results section. XR KUB KIDNEY URETER Routine 12/26/2019 9:28 Calculus of kidn ey Results for this BLADDER AM CDT procedure are i n the results section. AK ARTHROCENTESIS Routine 12/09/2019 1:00 Arthritis of Result s for this ASPIR&/INJ INTERM PM CDT carpometacarpal (CMC) p rocedure are in JT/BURS W/O US joint of left thumb the re sults section. XR FINGER 2+ VW LEFT Routine 12/09/2019 12:49 Arthritis of Res ults for this PM CDT carpometacarpal (CMC) proced ure are in joint of left thumb the resu lts section. US THYROID Routine 07/26/2019 12:15 Multinodular goiter Resu lts for this PM [employer] procedure are i n the results section. T4, FREE Routine 07/17/2019 10:06 Multinodular goiter Resu lts for this AM [employer] procedure are i n the results section. T3 Routine 07/17/2019 10:06 Multinodular goiter Resu lts for this AM [employer] procedure are i n the results section. THYROID STIMULATING Routine 07/17/2019 10:06 Multinodular goit er Results for this HORMONE AM [employer] procedure are i n the results section. LIPID PANEL Routine 07/17/2019 10:06 History of TIA Results f or this AM [employer] (transient ischemic procedur e are in attack) the results section. HEMOGLOBIN A1C Routine 07/17/2019 10:06 Diabetes mellitus Resu lts for this AM [employer] screening procedure are i n the results section. COMPREHENSIVE Routine 07/17/2019 10:06 Nephrolithiasis Results for this METABOLIC PANEL AM [employer] procedure ar e in the results section. CBC WITH PLATELET AND Routine 07/17/2019 10:06 Nephrolithiasis Results for this DIFFERENTIAL AM [employer] procedure are i n the results section. ECG 12-LEAD Routine 07/17/2019 9:49 History of TIA Results f or this AM [employer] (transient ischemic procedur e are in attack) the results section. XR KUB KIDNEY URETER Routine 04/16/2019 1:38 Renal calculus R esults for this BLADDER PM CDT procedure are i n the results section. after 03/20/[address] Chest Wo Contrast (01/29/2020 3:26 PM CDT) Specimen Narrative Performed At EXAMINATION: [facility] CT CHEST WO CONTRAST CLINICAL HISTORY: J18.9 Pneumonia unspecified orga nism, pneumonitis on abd ct elsewhere TECHNIQUE: Multiple axial images of the chest were obtained witho ut contrast. Sagittal and coronal computerized reformatted images w ere also obtained. . All CT images were acquired using radiation dose lowering technique with automated exposure contro l and / or iterative reconstruction. COMPARISON: No IMPRESSION: 1.A noncalcified 2.5 mm nodule in the middle lobe, ser ies 3 image 71, is likely benign, though a one-year follow- up can be obtained. [id number] 2.A pleural-based noncalcified 5.5 mm nodule along the right major fissure on image 62, likely also benign, can be reasse ssed at one year follow-up also, as can a 3 mm subpleural nodule in the basal left lower lobe on image 81. 3.Mild centrilobular emphysema upper ramez g predominant. 4.Mild bibasilar scarring. Calcified gra nulomata. Lungs otherwise clear. 5.No axillary, mediastinal or definite hilar lymphaden opathy identified on this limited noncontrast exam. Heart is nonenlarged . No pericardial or pleural effusion. 6.A small hiatal hernia. 7.Dextroconvex lower thoracic spine scoliosis. Visuali zed bones show no suspicious lesion. SUMMARY: No acute pneumonia identified. Scattered pulmonary nodules are likely all benign, tho [facility] one year follow-up can be obtained. Other findings as above [facility]-[id number] Procedure Note Interface, Radiology Results - 01/29/2020 3:34 PM CDT EXAMINATION: CT CHEST WO CONTRAST CLINICAL HISTORY: J18.9 Pneumonia unsp ecified organism, pneumonitis on abd ct elsewhere TECHNIQUE: Multiple axial images of the chest were obtained without contrast. Sagittal and coronal computerized reformatted images were also obtained. . All CT images were acquired using radiation dose lowering technique with automated exposure control and / or iterative reconstruction. COMPARISON: No IMPRESSION: 1.A noncalcified 2.5 mm nodule in the mi ddle lobe, series 3 image 71, is likely benign, though a one-year follow-up can be obtained. [id number] 2.A pleural-based noncalcified 5.5 mm no dule along the right major fissure on image 62, likely also benign, can be reassessed at one year follow-up also, as can a 3 mm subpleural nodule in the basal left lower lobe on image 81. 3.Mild centrilobular emphysema upper ramez g predominant. 4.Mild bibasilar scarring. Calcified gra nulomata. Lungs otherwise clear. 5.No axillary, mediastinal or definite h ilar lymphadenopathy identified on this limited noncontrast exam. Heart is nonenlarged. No pericardial or pleural effusion. 6.A small hiatal hernia. 7.Dextroconvex lower thoracic spine scol iosis. Visualized bones show no suspicious lesion. SUMMARY: No acute pneumonia identified. Scattered pulmonary nodules are likely a ll benign, though one year follow-up can be obtained. Other findings as above [facility]-[id number] Performing Organization Address City/State/Zipcode Phone Number [facility] [address] [place] [address] Medium Joint Arthrocentesis: hand, right (01/13/2020 3:00 PM CDT) Narrative Performed At Yolanda Dodge MD 0 3:46 PM Medium Joint Arthrocentesis: hand, right Consent given by: patient Site marked: site marked Timeout: Immediately prior to procedure a time out was called to verify the correct patient, procedure, equipmen t, direct support worker and site/side marked as required Supporting Documentation Indications: pain and joint swelling Procedure Details Preparation: Patient was prepped and lobo ped in the usual sterile fashion Ultrasound guided: no Platelet Rich Plasma Used: no PRP Used Location: hand - right Right side: Needle size: 25 G Right hand medications administered: 0.5 mL lidocaine 10 mg/mL (1 %); 1 mL triamcinolone acetonide 40 mg/mL Patient tolerance: patient tolerated the procedure wel l with no immediate complications XR Finger 2+ Vw Right (01/13/2020 2:33 PM CDT) Specimen Narrative Performed At This result has an attachment that is no t available. 3 view of right thumb is negative for acute fracture/dislocation, eaton [facility] stage 2 cmc arthritis present. Performing Organization Address City/State/Zipcode Phone Number [facility] [address] [place] [address] XR Kub Kidney Ureter Bladder (12/26/2019 9:28 AM CDT)Only the most recent of2 resultswithin the time period is included. Specimen Narrative Performed At EXAMINATION: XR KUB KIDNEY URETER BLAD LYNETTE [facility] CLINICAL HISTORY: N20.0 Calculus of ki dney, n20.0 COMPARISON: 04/16/2019 IMPRESSION: No definite radiopaque stone identified. A 3 mm calcif ication left of midline projecting at L3 level is long-t erm stable, likely vascular. Bowel gas pattern is nonobstructive. Mild thoracolumbar scoliosis. [id number] Procedure Note Interface, Radiology Results Incoming - 12/26/2019 9:34 AM CDT EXAMINATION: XR KUB KIDNEY URETER BLADDER CLINICAL HISTORY: N20.0 Calculus of kid [facility], n20.0 COMPARISON: 04/16/2019 IMPRESSION: No definite radiopaque stone identified. A 3 mm calcification left of midline projecting at L3 level is long-term stable, likely vascular. Bowel gas pattern is nonobstructive. Mild thoracolumbar scoliosis. [id number] Performing Organization Address City/[facility]/Zipcode Phone Number [facility] [address] [place] [address] Medium Joint Arthrocentesis: hand, left (12/09/2019 1:00 PM CDT) Narrative Performed At Yolanda Dodge MD 0 4:33 PM Medium Joint Arthrocentesis: hand, left Consent given by: patient Site marked: site marked Timeout: Immediately prior to procedure a time out was called to verify the correct patient, procedure, equipmen t, direct support worker and site/side marked as required Supporting Documentation Indications: pain and joint swelling Procedure Details Preparation: Patient was prepped and lobo ped in the usual sterile fashion Ultrasound guided: no Platelet Rich Plasma Used: no PRP Used Location: hand - left Left side: Needle size: 25 G Patient tolerance: patient tolerated the procedure wel l with no immediate complications Left hand medications administered: 0.5 mL lidocaine 1 0 mg/mL (1 %); 1 mL triamcinolone acetonide 40 mg/mL XR Finger 2+ Vw Left (12/09/2019 12:49 PM CDT) Specimen Narrative Performed At This result has an attachment that is no t available. 3 view of left thumb is negative for acute osseous injury, eaton stage 3-4 [facility] cmc arthritis present. Performing Organization Address [facility] Phone Number [facility] [address] [place] [address] US Thyroid (07/26/2019 12:15 PM [employer]) Specimen Narrative Performed At EXAMINATION: US THYROID [facility] CLINICAL HISTORY: E04.2 Nontoxic multino dular goiter, goiter COMPARISON: November 04, 2014 ultrasound FINDINGS: 1.Right lobe measures 5.2 x 1.8 x 1.5 cm. Left lobe me asures 5.1 x 1.6 x 1.1 cm. 2.There are few tiny scattered cysts in both lobes. Al l of these measure less than 6 mm in size, and none of these have ultraso und characteristics warranting further evalu ation or biopsy. 3.Echogenicity of the background thyroid gland is normal. IMPRESSION: Tiny scattered thyroid cysts not having ultrasound bernarda racteristics warranting further evaluation. Stable ap pearance since the prior study. [id number] Procedure Note Hm Interface, Radiology Results Incoming - 07/26/2019 1:03 PM [employer] EXAMINATION: US THYROID CLINICAL HISTORY: E04.2 Nontoxic multino dular goiter, goiter COMPARISON: November 04, 2014 ultrasound FINDINGS: 1.Right lobe measures 5.2 x 1.8 x 1.5 cm . Left lobe measures 5.1 x 1.6 x 1.1 cm. 2.There are few tiny scattered cysts in both lobes. All of these measure less than 6 mm in size, and none of these have ultrasound characteristics warranting further evaluation or biopsy. 3.Echogenicity of the background thyroid gland is normal. IMPRESSION: Tiny scattered thyroid cysts not having ultrasound characteristics warranting further evaluation. Stable appearance since the prior study. [id number] Performing Organization Address City/State/Zipcode Phone Number [facility] [address] [place] [address] CBC with platelet and differential (07/17/2019 10:06 AM [employer]) Pathologist Sig nature WBC 7.8 3.8 - 10.8 [facility] Thousand/uL [place] RBC 4.82 3.80 - 5.10 [facility] Million/uL [place] HGB 14.7 11.7 - 15.5 [facility] g/dL [place] HCT 43.2 35.0 - 45.0 % [facility] [place] MCV 89.6 80.0 - 100.0 fL [facility] MCH 30.5 27.0 - 33.0 pg [facility] [place] MCHC 34.0 32.0 - 36.0 [facility] g/dL [place] RDW 13.1 11.0 - 15.0 % [facility] [place] Platelet count 245 140 - 400 [facility] Thousand/uL [place] MPV 10.8 7.5 - 12.5 fL [facility] [place] Neutrophils, absolute 4,251 1,500 - 7,800 [facility] cells/uL [place] Lymphocytes, absolute 2,675 850 - 3,900 [facility] cells/uL [place] Monocytes, absolute 538 200 - 950 [facility] cells/uL [place] Eosinophils, absolute 273 15 - 500 [facility] cells/uL [place] Basophils, absolute 62 0 - 200 [facility] cells/uL [place] Neutrophils 54.5 % [facility] [place] Lymphocytes 34.3 % [facility] [place] Monocytes 6.9 % [facility] [place] Eosinophils 3.5 % [facility] [place] Basophils + RC 0.8 % wali [place] Specimen Blood Narrative Performed At FASTING:YES [facility] MULTIPLE TESTING PRIORITIES; ROUTINE ADRIANA TING TO FOLLOW. FASTING: YES Resulting Agency Comment Performing Organization Information: Site ID: [id number] Name: [facility] Address: [address] [place] [id number] Director: García Woodard Performing Organization Address City/[facility]/[place]code [place] [address] T3 (07/17/2019 10:06 AM [employer]) Pathologist Sig nature T3 99 76 - 181 ng/dL wali [place] Specimen Blood Narrative Performed At FASTING:YES [facility] MULTIPLE TESTING PRIORITIES; ROUTINE ADRIANA TING TO FOLLOW. FASTING: YES Resulting Agency Comment Performing Organization Information: Site ID: [id number] Name: [facility] Address: [address] [place] [phone] Director: García Woodard Performing Organization Address [facility] Hospital[facility] [place] [address] Thyroid stimulating hormone (07/17/2019 10:06 AM [employer]) Pathologist Sig nature TSH 1.57 0.40 - 4.50 mIU/L wali [facility] Specimen Blood Narrative Performed At FASTING:YES [facility] MULTIPLE TESTING PRIORITIES; ROUTINE ADRIANA TING TO FOLLOW. FASTING: YES Resulting Agency Comment Performing Organization Information: Site ID: [id number] Name: [facility] Address: [address] [place] [phone] Director: García Woodard Performing Organization Address [facility] Hospital[facility] [place] [address] T4, free (07/17/2019 10:06 AM [employer]) Pathologist Sig nature T4, free 1.2 0.8 - 1.8 ng/dL wali [facility] Specimen Blood Narrative Performed At FASTING:YES [facility] MULTIPLE TESTING PRIORITIES; ROUTINE ADRIANA TING TO FOLLOW. FASTING: YES Resulting Agency Comment Performing Organization Information: Site ID: [id number] Name: [facility] Address: [address] [place] [phone] Director: García Woodard Performing Organization Address City/[facility] Phone Number [facility] [place] [phone] Hemoglobin A1c (07/17/2019 10:06 AM [employer]) Hemoglobin A1C 5.5 <5.7 % of wali Comment: total Hgb [place] For the purpose of screening for the presence of diabetes: <5.7% Consistent with the absence of diabetes 5.7-6.4% Consistent with increased risk for diabe adriana (prediabetes) > or =6.5% Consistent with diabetes This assay result is consistent with a decreased risk of diabetes. Currently, no consensus exists regarding use of hemoglobin A1c for diagnosis of diabetes in children. According to [place] [employer] (ADA) guidelines, hemoglobin A1c <7.0% represents optimal control in non- diabetic patients. Different metrics may apply to specific patient populations. Standards of Medical Care in Diabetes(ADA). Specimen Blood Narrative Performed At FASTING:YES [facility]; ROUTINE ADIRANA TING TO FOLLOW. FASTING: YES Resulting Agency Comment Performing Organization Information: Site ID: [id number] Name: [facility] Address: [address] [place] [id number] Director: García Woodard Performing Organization Address [facility] Hospital[facility] [place] [address] Lipid panel (07/17/2019 10:06 AM [employer]ISANCE ANIMAL DAMAGE CONTROL AGENT) Cholesterol, total 221 (H) <200 mg/dL [facility] HDL cholesterol 65 >50 mg/dL [facility] Triglycerides 178 (H) <150 mg/dL w[facility] LDL cholesterol 126 (H) mg/dL (calc) wali calculated Comment: [facility] Reference range: <100 Desirable range <100 mg/dL for primary prevention; <70 mg/dL for patients with CHD or diabetic patients with > or = 2 CHD risk factors. LDL-C is now calculated using the Jose calculation, which is a validated novel method providi ng better accuracy than the Friedewald equation in the estimation of LDL-C. Froilan ROTH et al. YOHANA. 2013;310(19): 6402-6085 (http://education.AlphaSights.Validus/faq/UIY880) Cholesterol/HDL 3.4 <5.0 (calc) [facility] ratio [facility] Non-HDL cholesterol 156 (H) <130 mg/dL [facility] Comment: (calc) [facility] For patients with diabetes plus 1 major ASCVD risk factor, treating to a non-HDL-C goal of <100 mg/dL (LDL-C of <70 mg/dL) is considered a therapeutic option. Specimen Blood Narrative Performed At FASTING:YES [facility]; ROUTINE ADRIANA TING TO FOLLOW. 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 EGFR Non-Afr. 95 > OR = 60 [facility] [place] mL/min/1.73m [facility] 2 EGFR 111 > OR = 60 [facility] [place] mL/min/1.73m [facility] 2 BUN/creatinine NOT APPLICABLE 6 - 22 [facility] ratio (calc) [facility] Sodium 140 135 - 146 [facility] mmol/L [facility] Potassium 4.0 3.5 - 5.3 [facility] mmol/L [facility] Chloride 102 98 - 110 [facility] mmol/L [facility] CO2 30 20 - 32 [facility] mmol/L [facility] Calcium 9.3 8.6 - 10.4 [facility] mg/dL [facility] Protein 6.5 6.1 - 8.1 [facility] g/dL [facility] Albumin, S 4.3 3.6 - 5.1 [facility] g/dL [place] Globulin, total 2.2 1.9 - 3.7 [facility] g/dL (calc) [facility] Albumin/globulin 2.0 1.0 - 2.5 [facility] ratio (calc) [facility] Total bilirubin 0.5 0.2 - 1.2 [facility] mg/dL [facility] Alkaline 72 33 - 130 U/L [facility] phosphatase [facility] AST 17 10 - 35 U/L [facility] ALT 16 6 - 29 U/L [facility] Specimen Blood Narrative Performed At FASTING:YES [facility]; ROUTINE ADRIANA TING TO FOLLOW. FASTING: YES Resulting Agency Comment Performing Organization Information: Site ID: [id number] Name: [facility] Address: [address] [place] [id number] Director: García Woodard Performing Organization Address City/State/Zipcode Phone Number [facility] [address] [address] ECG 12 lead (07/17/2019 9:49 AM N[employer]ISANCE [employer]IM[employer] DAMAGE CONTROL AGENT) Pathologist Sig nature Ventricular rate 54 [facility] Atrial rate 54 [facility] AK interval 160 [facility] QRSD interval 90 [facility] QT interval 456 [facility] QTC interval 432 [facility] P axis 1 60 [facility] QRS axis 1 36 [facility] T wave axis 69 [facility] EKG impression Sinus [facility] bradycardia-Otherwise normal ECG-In automated comparison with ECG of 28-FEB-2019 13:47,-No significant change was found- Specimen Narrative Performed At This result has an attachment that is no t available. Performing Organization Address City/[facility] Phone Number [place] [address] [place] [address] after 03/20/2019 Advance Directives For more information, please contact: [phone] Type Date Recorded Patient Operator Prefinish Explanati on Advance Directives, Living Will and Medical Power of Law Office Assistant
--- OUTSIDE RECORDS SUMMARY | 2020-03-20 06:34 | XMS REPORT | Continuity of Care Document ---
:1955 Author Organization [facility] t Address [address] [place] [address] Care Team Providers Name Role Phone David MURPHY, A. Primary Care Physician David MURPHY, Abdullahi. Attending Clinician Amanda Dodge MD Attending Clinician Miguel Mcdonald MA Attending Clinician Unavailable Seema MURPHY, AAlejo Attending Clinician Luca PERRY Attending Clinician Unavailable Payers Payer Name Policy Type Policy Number Effective Date Expiration Date S fanny CIGNACIGNA OPEN xxxxxxxxxxx 2019 [place] ACCESS/NETWORKxx 00:00:00 Methodis t 9-PresentHMO Problems Condition Condition Condition Status Onset Resolution Last Treating Co mments Source Name Details Category Date Date Treatment Clinician Date Nephrolith Nephrolith Disease Active 2019-0 [place] iasis iasis 1-08 Methodi 00:00: st 00 Menopausal Menopausal Disease Active 2018- [place] syndrome syndrome 5-18 Method i 00:00: st 00 Low back Low back Disease Active 2015- [place] pain pain 2-22 Methodi 00:00: st 00 Multinodul Multinodul Disease Active 2015- [place] ar goiter ar goiter 2-22 Meth kee 00:00: st 00 Tobacco Tobacco Disease Active [place] dependence dependence 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 00:00: st 00 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 00:00: st disorder, disorder, 00 in full in full remission remission 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 00:00: st 00 Encounter Encounter Disease Active Buffy mohr for health for health 3-06 Me courtneyodi maintenanc maintenanc 00:00: st e e 00 examinatio examinatio n in adult n in adult Lumbosacra Lumbosacra Disease Active [place] l neuritis l neuritis - Me thodi 00:00: st 00 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 Meth kee valve valve 00:00: st 00 History of History of Disease Active H jennifer TIA TIA 02-22 Methodi (transient (transient 00:00: st ischemic ischemic 00 attack) attack) History of Past Illness Condition Condition Condition Status Onset Resolution Last Treating Co mments Source Name Details Category Date Date Treatment Clinician Date Chest pain Chest pain Disease Resolve 2017-072019-07-17 2019-07-17 Figueredo in adult in adult d 2-13 00:00:00 09:39:01 Me thodi 00:00: st 00 Chest pain Chest pain Disease Resolve 2017-072019-07-17 2019-07-17 [place] at rest at rest d 2-13 00:00:00 09:39:02 Meth kee 00:00: st 00 Allergies, Adverse Reactions, Alerts Allergy Allergy Status Severity Reaction(s) Onset Inactive Treating Comm ents Source Name Type Date Date Clinician Other Propensi Active Itching 2017-07 seafood [place] Food ty to 2-13 Methodi adverse 00:00: st reaction 00 s Family History Family Member Diagnosis Comments Start Date Stop Date Source Natural brother Bipolar disorder Buffy mohr [facility] Natural father Diabetes [place] Me thodist Natural father Heart disease [place] [facility] Natural father Hyperlipidemia [place] [facility] Maternal grandmother Cancer [place] [facility] Natural mother Heart disease [place] [facility] Natural mother Stroke [place] [facility] thodist Paternal grandfather Heart disease [place] [facility] Paternal grandmother Cancer [place] [facility] Natural sister Hepatitis [place] Me thodist Social History Social Habit Start Date Stop Date Quantity Comments Source Sex Assigned At F Figueredo M ethodist Exposure to Not sure [place] Metho dist SARS-CoV-2 (event) Cigarettes smoked 2019-12-09 2019-12-09 Terell Chun current (pack per 00:00:00 00:00:00 day) - Reported Cigarette 2019-12-09 2019-12-09 Terell Method ist pack-years 00:00:00 00:00:00 Alcohol intake 2019-12-09 2019-12-09 Current drinker [place] [facility] 00:00:00 00:00:00 of alcohol (finding) Tobacco Comment 2019-09-24 2019-09-24 stopped a week [place] [facility] 00:00:00 00:00:00 ago with chantix (still taking) History of tobacco 1972-07-10 2019-09-17 Current smoker Geovanni gasca [facility] use 00:00:00 00:00:00 Smoking Status Start Date Stop Date Source Former smoker 2019-12-09 00:00:00 2019-12-09 00:00:00 Terell Chun Medications Ordered Filled Start Stop Current Ordering Indication Dosage Frequency Signature Comments Components Source Medication Medication Date Date Medication? Clinician (SIG) Name Name UNABLE TO 2020-0 Yes QD daily. [place] FIND 6- Tru Red Methodi 12:44: st 14 UNABLE TO 2020-0 Yes QD daily. Mohamud n FIND 6- Tumeric Methodi 12:44: st 14 hydroCHLORO 2020-0 Yes Q24H daily. Criss henriquez thiazide 6- Methodi (HYDRODIURI 12:44: st L) 25 MG 14 tablet multivitami 2020-0 Yes 1{tbl} QD Take 1 Geovanni gasca n 6-01 tablet by Methodi (THERAGRAN) 12:44: mouth st tablet 06 every evening. nadoloL 2020-0 Yes TAKE 3 Terell (CORGARD) 5-25 TABLETS BY Meth kee 40 MG 00:00: MOUTH st tablet 00 EVERY DAY fluticasone 2020-0 Yes SPRAY 2 Buffy ston propionate 5-05 SPRAYS Methodi (FLONASE) 00:00: INTO EACH st 50 00 NOSTRIL mcg/actuati EVERY DAY on nasal spray fluticasone 2020-0 2020- No SPRAY 2 [place] propionate 4-08 05-05 SPRAYS Method i (FLONASE) 00:00: 00:[address] 50 00 :00 NOSTRIL mcg/actuati EVERY DAY on nasal spray fluticasone 2019- No 100ug QD 2 sprays Figueredo propionate 17 -08 (100 mcg Meth kee (FLONASE) 00:00: 00:00 total) by st 50 00 :00 Each Nare mcg/actuati route on nasal daily. spray amoxicillin 2019- No 1{tbl} Q.5D Take 1 [place] -pot 317 03-24 tablet by Methodi clavulanate 00:00: 23:[address] (AUGMENTIN) 00 :00 (two) 875-125 mg times a per tablet day for 7 days. CHANTIX 1 Yes TAKE 1 [place] mg tablet 3-16 TABLET (1 Metho di 00:00: MG TOTAL) st 00 BY MOUTH 2 (TWO) TIMES A DAY FOR 90 DAYS. TAKE WITH FULL GLASS OF WATER. nadoloL 2019- No 120mg QD Take 3 [place] (CORGARD) 3-05 05-25 tablets Method i 40 MG 00:00: 00:00 ([address] tablet 00 :00 total) by mouth daily. nadoloL 2019- No TAKE 3 Figueredo (CORGARD) 2-27 03-05 TABLETS BY Met hodi 40 MG 00:00: 00:[address] tablet 00 :00 DAILY clopidogreL Yes TAKE 1 [place] (PLAVIX) 75 2-24 TABLET BY Met hodi mg tablet 00:00: MOUTH st 00 EVERY DAY nadolol 2019- No 120mg QD Take 3 [place] (CORGARD) 1-24 02-27 tablets Method i 40 MG 00:00: 00:00 ([address] tablet 00 :00 total) by mouth daily. clopidogreL 2019- No 75mg QD Take 1 Buffy ston (PLAVIX) 75 1-24 02-24 tablet (75 M ethodi mg tablet 00:00: 00:00 mg total) st 00 :00 by mouth daily. varenicline 2020- No Take 0.5 [place] (CHANTIX -08 03-16 mg one Methodi STARTING 00:00: 00:[address] MONTH BOX) 00 :00 days 1-2 0.5 mg and 0.5 mg (11)- 1 mg twice (42) tablet daily on days 4-7. Then 1 mg twice daily for a total of 12 weeks. varenicline 2019- No 1mg Q.5D Take 1 Buffy ston (CHANTIX 07-17 03-16 tablet (1 Metho di CONTINUING 00:00: 00:00 mg total) s t MONTH BOX) 00 :00 by mouth 2 1 mg tablet (two) times a day for 90 days. Take with full glass of water. nadolol 2018-07- No 120mg QD Take 3 [place] (CORGARD) 08-11 tablets Method i 40 MG 00:00: 00:00 ([address] tablet 00 :00 total) by mouth daily. clopidogrel 2018-07- No 75mg QD Take 1 Buffy ston (PLAVIX) 75 08-11 tablet (75 M ethodi mg tablet 00:00: 00:00 mg total) st 00 :00 by mouth daily. clopidogrel 2018- No 75mg QD Take 1 Buffy ston (PLAVIX) 75 03-26 tablet (75 M ethodi mg tablet 00:00: 00:00 mg total) st 00 :00 by mouth daily. HYDROcodone 2018- No 1{tbl} Q8H Take 1 [place] -acetaminop 02-26 tablet by Me pham alves (NORCO) 00:00: 23:[address] 5-325 mg 00 :00 every 8 per tablet (eight) hours as needed for moderate pain for up to 30 days. Max Daily Amount: 3 tablets clopidogrel 2018- No 75mg QD Take 1 Buffy ston (PLAVIX) 75 12-13 tablet (75 M ethodi mg tablet 00:00: 00:00 mg total) st 00 :00 by mouth daily. nadolol 2018- No TAKE 3 Figueredo (CORGARD) 506-10 TABLETS BY hodi 40 MG 00:00: 00:[address] tablet 00 :00 DAILY estradiol Yes 1mg QD 1 mg every [place] (ESTRACE) 1 08-07 evening. Meth kee MG tablet 00:00: Take 07/11 00 tablet daily Immunizations Ordered Immunization Filled Immunization Date Status Commen ts Source Name Name Tdap 2019-07-17 Completed [place] 00:00:00 [facility] Influenza Trivalent 2009-07-22 Completed [place] 00:00:00 [facility] Td 2009-07-22 Completed [place] 00:00:00 [facility] Td 2009-03-24 Completed [place] 00:00:00 [facility] Influenza Trivalent 2008-04-03 Completed [place] 00:00:00 [facility] Vital Signs Vital Name Observation Time Observation Value Comments Source Systolic blood 2019-07-17 09:02:00 126 mm[Hg] [place] [facility] pressure Diastolic blood 2019-07-17 09:02:00 63 mm[Hg] [place] [facility] pressure Heart rate 2019-07-17 09:02:00 54 /min Fig[place] [facility] Body height 2019-07-17 09:02:00 167.6 cm Figueredo [facility] Body weight 2019-07-17 09:02:00 69.037 kg Terell Chun BMI 2019-07-17 09:02:00 24.57 kg/m2 Terell Chun Procedures Procedure Date / Time Performing Clinician Source Performed CT CHEST WO CONTRAST 2020-01-29 15:26:01 Case Hernandez on [facility] OR ARTHROCENTESIS 2020-01-13 15:00:00 Yolanda Dodge Me thodist ASPIR&/INJ INTERM JT/BURS Amanda W/O US XR FINGER 2+ VW RIGHT 2020-01-13 14:33:03 Yolanda Dodgeist Amanda XR KUB KIDNEY URETER 2019-12-26 09:28:18 Ralph Bryan BLADDER OR ARTHROCENTESIS 2019-12-09 13:00:00 Yolanda Dodge Me thodist ASPIR&/INJ INTERM JT/BURS Amanda W/O US XR FINGER 2+ VW LEFT 2019-12-09 12:49:02 Yolanda Dodge Amanda US THYROID 2019-07-26 12:15:00 Case Hernandez Me thodist CBC WITH PLATELET AND 2019-07-17 10:06:00 Case Hernandezist DIFFERENTIAL COMPREHENSIVE METABOLIC 2019-07-17 10:06:00 Case Hernandez [facility] PANEL HEMOGLOBIN A1C 2019-07-17 10:06:00 Case Hernandez Ok thodist LIPID PANEL 2019-07-17 10:06:00 Case Hernandez Ok thodist THYROID STIMULATING 2019-07-17 10:06:00 Case Hernandez Mohamud n [facility] HORMONE T3 2019-07-17 10:06:00 Case Hernandez Ok thodist T4, FREE 2019-07-17 10:06:00 Case Hernandez Ok thodist ECG 12-LEAD 2019-07-17 09:49:56 Case Hernandez Ok thodist XR KUB KIDNEY URETER 2019-04-16 13:38:14 Ralph Bryan BLADDER Plan of Care Planned Activity Planned Date Details Comments Source Future Scheduled 2022-03-10 Screening for [facility] thodist Test 00:00:00 malignant neoplasm of cervix (procedure) [code = 561723046] Future Scheduled 2021-03-10 BREAST CANCER [facility] thodist Test 00:00:00 SCREENING [code = BREAST CANCER SCREENING] Future Scheduled 2020-11-21 COLONOSCOPY Postponed from [facility] ethodist Test 00:00:00 SCREENING [code = 02/23/2016 (Not COLONOSCOPY Indicated) SCREENING] Future Scheduled 2020-11-21 STOOL DNA [facility] hodist Test 00:00:00 (COLOGUARD) [code = STOOL DNA (COLOGUARD)] Future Scheduled 2020-04-09 INFLUENZA VACCINE [place] [facility] Test 00:00:00 [code = INFLUENZA VACCINE] Future Scheduled 2005-10-21 SHINGLES VACCINES [place] [facility] Test 00:00:00 (#1) [code = SHINGLES VACCINES (#1)] Encounters Start End Encounter Admission Attending Care Care Encounter Source Date/Time Date/Time Type Type Clinicians Facility Department ID 2020-01-29 2020-01-29 Outpatient DAVID [facility] [id number] [place] 00:00:00 00:00:00 CASE [address] 2020-01-13 2020-01-13 Outpatient ECHO [facility] [id number] [place] 00:00:00 00:00:00 YOLANDA [address] 2020-01-13 2020-01-13 Outpatient ECHO, [facility] [id number] [place] 00:00:00 00:00:00 YOLANDA [address] 2019-12-26 2019-12-26 Outpatient SEEMA, [facility] [id number] [place] 00:00:00 00:00:00 RALPH [address] 2019-12-09 2019-12-09 Outpatient ECHO, [facility] [id number] [place] 00:00:00 00:00:00 YOLANDA [address] 2019-12-09 2019-12-09 Outpatient ECHO, [facility] [id number] [place] 00:00:00 00:00:00 YOLANDA [address] 2019-09-24 2019-09-24 Outpatient HERNANDEZ, [facility] [id number] [place] 00:00:00 00:00:00 CASE [address] 2019-07-26 2019-07-26 Outpatient HERNANDEZ, [facility] [id number] [place] 00:00:00 00:00:00 CASE [address] 2019-04-16 2019-04-16 Outpatient SEEMA, [facility] [id number] [place] 00:00:00 00:00:00 RALPH [address] Results Test Description Test Time Test Comments Results Result Sourc e Comments CT Chest Wo 2020-01-09 [facility] Contrast [address] 15:31:30 01/29/2020 3:34 PM CDTEXAMINATION:CT CHEST WO CONTRASTCLINICAL HISTORY: J18.9 Pneumonia unspecified organism, pneumonitis on abd ct elsewhereTECHNIQUE:Mul tiple axial images of the chest were obtained without contrast. Sagittal and coronal computerized reformatted images were also obtained. . All CT images were acquired using radiation dose lowering technique with automated exposure control and / or iterative reconstruction.COMPARI SON:NoIMPRESSION:1.A noncalcified 2.5 mm nodule in the middle lobe, series 3 image 71, is likely benign, though a one-year follow-up can be obtained. [id number].A pleural-based noncalcified 5.5 mm nodule along the right major fissure on image 62, likely also benign, can be reassessed at one year follow-up also, as can a 3 mm subpleural nodule in the basal left lower lobe on image 81.3.Mild centrilobular emphysema upper lung predominant.4.Mild bibasilar scarring. Calcified granulomata. Lungs otherwise clear.5.No axillary, mediastinal or definite hilar lymphadenopathy identified on this limited noncontrast exam. Heart is nonenlarged. No pericardial or pleural effusion.6.A small hiatal hernia.7.Dextroconvex lower thoracic spine scoliosis. Visualized bones show no suspicious lesion.SUMMARY:No acute pneumonia identified.Scattered pulmonary nodules are likely all benign, though one year follow-up can be obtained.Other [id number] Medium Joint Yolanda Dodge Arthrocentesis: 6 MD Lay Patel, right 15:00:00 01/13/2020 3:46 PMMedium Joint Arthrocentesis: rosa m, rightConsent given by: patientSite marked: site markedTimeout: Immediately prior to procedure a time out was called to verify the correct patient, procedure, equipment, client support representative and site/side marked as required Supporting DocumentationIndicatio ns: pain and joint swelling Procedure DetailsPreparation: Patient was prepped and draped in the usual sterile fashionUltrasound guided: noPlatelet Rich Plasma Used: no PRP UsedLocation: hand - right Right side:Needle size: 25 GRight hand medications administered: 0.5 mL lidocaine 10 mg/mL (1 %); 1 mL triamcinolone acetonide 40 mg/mLPatient tolerance: patient tolerated the procedure well with no immediate complications [facility]R [facility] Radiology Results Met hodist 09:31:52 - 12/26/2019 9:34 AM CDTEXAMINATION: XR KUB KIDNEY URETER BLADDERCLINICAL HISTORY: N20.0 Calculus of kidney, n20.0COMPARISON: 04/16/2019IMPRESSION:No definite radiopaque stone identified. A 3 mm calcification left of midline projecting at L3 level is long-term stable, likely vascular.Bowel gas pattern is nonobstructive.Mild thoracolumbar scoliosis.[id number] L3 Medium Joint EchoYolanda etienne Arthrocentesis: 1 MD Lay Patel, left 13:00:00 12/09/2019 4:33 PMMedium Joint Arthrocentesis: hand, leftConsent given by: patientSite marked: site markedTimeout: Immediately prior to procedure a time out was called to verify the correct patient, procedure, equipment, client support representative and site/side marked as required Supporting DocumentationIndicatio ns: pain and joint swelling Procedure DetailsPreparation: Patient was prepped and draped in the usual sterile fashionUltrasound guided: noPlatelet Rich Plasma Used: no PRP UsedLocation: hand - left Left side:Needle size: 25 GPatient tolerance: patient tolerated the procedure well with no immediate complicationsLeft hand medications administered: 0.5 mL lidocaine 10 mg/mL (1 %); 1 mL triamcinolone acetonide 40 mg/mL US Thyroid 2019-07-10 [place] [id number] 13:00:48 Incoming - 07/26/2019 1:03 PM CSTEXAMINATION: US THYROID CLINICAL HISTORY: E04.2 Nontoxic multinodular goiter, goiter COMPARISON: November 04, 2014 ultrasoundFINDINGS:1.R ight lobe measures 5.2 x 1.8 x 1.5 cm. Left lobe measures 5.1 x 1.6 x 1.1 cm.2.There are few tiny scattered cysts in both lobes. All of these measure less than 6 mm in size, and none of these have ultrasound characteristics warranting further evaluation or biopsy.3.Echogenicity of the background thyroid gland is normal.IMPRESSION:Tiny scattered thyroid cysts not having ultrasound characteristics warranting further evaluation. Stable appearance since the prior study.[id number] Comprehensive metabolic panel 2019-07-18 00:16:00 Test Item Value Reference Range Interpretation Comme nts Glucose (test code = 97 mg/dL 65-99 Fasting 2345-7) reference inter margy BUN (test code = 21 mg/dL 7-25 3094-0) Creatinine (test code 0.63 mg/dL 0.5-0.99 For pa tients >49 years of = 2160-0) age, the refere nce limitfor Creati nine is approximately 1 3% higher for peopleident ified as -Kerry n. EGFR Non-Afr. 95 > OR = 60 Martiniquais (test code = mL/min/1.73m2 2775) EGFR 111 > OR = 60 (test code = 76434-8) mL/min/1.73m2 BUN/creatinine ratio NOT APPLICABLE 6- 22 (calc) (test code = 3097-3) Sodium (test code = 140 mmol/L 513-995 5245-2) Potassium (test code 4.0 mmol/L 3.5-5.3 = 2823-3) Chloride (test code = 102 mmol/L 98-110 2074-0) CO2 (test code = 30 mmol/L 20-32 2027-9) Calcium (test code = 9.3 mg/dL 8.6-10.4 18295-3) Protein (test code = 6.5 g/dL 6.1-8.1 2885-2) Albumin, S (test code 4.3 g/dL 3.6-5.1 = 1751-7) Globulin, total (test 2.2 1.9- 3.7 g/dL code = 29481-3) (calc) Albumin/globulin 2.0 1.0- 2.5 (calc) ratio (test code = 1759-0) Total bilirubin (test 0.5 mg/dL 0.2-1.2 code = 1974-2) Alkaline phosphatase 72 U/L 33-130 (test code = 6768-6) AST (test code = 17 U/L 10-35 192-8) ALT (test code = 16 U/L 6- 174-6) SADA (test code = SADA) FASTING:YESMULTIPLE TESTING PRIORITIES; ROUTINE TESTING TO FOLLOW.FASTING: YES RAC (test code = RAC) Performing Organization Information: Site ID: RGA Name: [facility] Address: [address] [place] [address] Director: García Figueredo MethodistLipid [id number] 00:16:00 Test Item Value Reference Range Interpretation Comments Cholesterol, total 221 mg/dL <200 H (test code = 2092-3) HDL cholesterol 65 mg/dL >50 (test code = 2084-9) Triglycerides (test 178 mg/dL <150 H code = 2571-8) LDL cholesterol 126 mg/dL (calc) H Reference ra nge: calculated (test <100 Desira ble code = 19993-1) range <100 m g/dL for primary prevention; <7 0 mg/dL for patients with C HD or diabetic patients with > or = 2 CHD risk factors. LDL-C is now calculated using the Jose calculation, which is a validated novel method providin g better accuracy than the Friedewald equation in the estimation of LDL-C. Froilan Zeng S et al. YOHANA. 2013;310(19): 0270-2109 (http://educati on .[place] .com/faq/GJN679 ) Cholesterol/HDL 3.4 <5.0 (calc) ratio (test code = 9830-1) Non-HDL cholesterol 156 <130 mg/dL H For jn ents with (test code = (calc) diabetes plus 1 80153-3) major ASCVD ris k factor, treatin g to a non-HDL-C goal of <100 mg/dL (LDL-C of <70 mg/dL) is considered a therapeutic option. SADA (test code = FASTING:YESMULTIPL SADA) E TESTING PRIORITIES; ROUTINE TESTING TO FOLLOW.FASTING: YES RAC (test code = Performing RAC) Organization Information: Site ID: RGA Name: [facility] Address: [address] [place] [id number] Director: García Woodard Lab Interpretation Abnormal (test code = 25460-3) [place] MethodistHemoglobin [id number] 00:16:00 Test Item Value Reference Range Interpretation Comments Hemoglobin A1C 5.5 <5.7 % of total For the pu rpose of (test code = Hgb screening for t he 4548-4) presence ofdiab etes: <5.7% Consistent with the absence of diabetes5.7-6.4 % Consistent with increased risk for diabetes (prediabetes)> or =6.5% Consiste nt with diabetes T his assay result is consistent with a decreased risko f diabetes. Curre ntly, no consensus ex ists regarding use ofhemoglobin A1 c for diagnosis of di abetes in children. According to [place] er[place] Diabetes Associ ation (ADA)guidelines , hemoglobin A1c <7.0% represents optimalcontrol in non- di abetic patients. Differentmetric s may apply to specif ic patient populat ions. Standards of [place] dical Care in Diabetes(ADA). SADA (test code = FASTING:YESMULTIPL SADA) E TESTING PRIORITIES; ROUTINE TESTING TO FOLLOW.FASTING: YES RAC (test code = Performing RAC) Organization Information: Site ID: SHAILA Name: [facility] Address: [address] [place] [address] Director: García Chen, [id number] 00:16:00 Test Item Value Reference Range Interpretation Comments T4, free (test code 1.2 ng/dL 0.8-1.8 = 3024-7) SADA (test code = FASTING:YESMULTIPLE SADA) TESTING PRIORITIES; ROUTINE TESTING TO FOLLOW.FASTING: YES RAC (test code = Performing Organization RAC) Information: Site ID: SHAILA Name: [facility] Address: [address] [place] [address] Director: García FloresistThyroid stimulating [id number] 00:16:00 Test Item Value Reference Range Interpretation Comments TSH (test code = 1.57 0.40- 4.50 mIU/L 3016-3) SADA (test code = FASTING:YESMULTIPLE SADA) TESTING PRIORITIES; ROUTINE TESTING TO FOLLOW.FASTING: YES RAC (test code = Performing Organization RAC) Information: Site ID: SHAILA Name: [facility] Address: [address] [place] [address] Director: García Woodard [place] [id number] 00:16:00 Test Item Value Reference Range Interpretation Comments T3 (test code = 99 ng/dL 76-181 3053-6) SADA (test code = FASTING:YESMULTIPLE SADA) TESTING PRIORITIES; ROUTINE TESTING TO FOLLOW.FASTING: YES RAC (test code = Performing Organization RAC) Information: Site ID: SHAILA Name: [facility] Address: [address] [place] [id number] Director: García Woodard [place] Mu-IsmCBC with platelet and [id number] 00:16:00 Test Item Value Reference Range Interpretation Comments WBC (test code = 7.8 3.8- 10.8 6690-2) Thousand/uL RBC (test code = 4.82 3.80- 5.10 789-8) Million/uL HGB (test code = 14.7 g/dL 11.7-15.5 718-7) HCT (test code = 43.2 % 35-45 4544-3) MCV (test code = 89.6 fL 80-100 787-2) MCH (test code = 30.5 pg 27-33 785-6) MCHC (test code = 34.0 g/dL 32-36 786-4) RDW (test code = 13.1 % 11-15 788-0) Platelet count (test 245 140- 400 code = 777-3) Thousand/uL MPV (test code = 10.8 fL 7.5-12.5 776-5) Neutrophils, absolute 4251 1,500 - 7,800 (test code = 751-8) cells/uL Lymphocytes, absolute 2675 850- 3,900 (test code = 731-0) cells/uL Monocytes, absolute 538 200- 950 cells/uL (test code = 742-7) Eosinophils, absolute 273 15- 500 cells/uL (test code = 711-2) Basophils, absolute 62 0- 200 cells/uL (test code = 704-7) Neutrophils (test 54.5 % code = 770-8) Lymphocytes (test 34.3 % code = 736-9) Monocytes (test code 6.9 % = 5905-5) Eosinophils (test 3.5 % code = 713-8) Basophils + RC (test 0.8 % code = 706-2) SADA (test code = SADA) FASTING:YESMULTIPLE TESTING PRIORITIES; ROUTINE TESTING TO FOLLOW.FASTING: YES RAC (test code = RAC) Performing Organization Information: Site ID: RGA Name: [facility] Address: [address] [place] [address] Director: García Jon 12 [id number] 09:56:34 Test Item Value Reference Range Interpretation Comments Ventricular rate (test 54 code = 253) Atrial rate (test code 54 = 255) OR interval (test code 160 = 266) QRSD interval (test 90 code = 260) QT interval (test code 456 = 264) QTC interval (test code 432 = 265) P axis 1 (test code = 60 267) QRS axis 1 (test code = 36 268) T wave axis (test code 69 = 270) EKG impression (test Sinus code = 273) bradycardia-Otherwise normal ECG-In automated comparison with ECG of 28-FEB-2019 13:47,-No significant change was found- Terell Chun
[2020-03-20] MEDS ORDERED: Ringers Lactate 1,000 ML IV ONE (06:56)
[2020-03-20] MEDS ORDERED: CEFAZOLIN/SWI 1gm 1 GM/10 ML SYR ONE (06:57)
[2020-03-20] MEDS ORDERED: FENTANYL CITR 100 MCG/2 ML ONE (07:02)
[2020-03-20] MEDS ORDERED: propofoL 200 MG/20 ML VIAL IV ONE (07:02)
[2020-03-20] MEDS ORDERED: ONDANSETRON 4 MG/2 ML VIAL ONE (07:03)
[2020-03-20] MEDS ORDERED: LIDOCAINE 2% MPF 5 ML VIAL ONE (07:03)
[2020-03-20] MEDS ORDERED: MIDAZOLAM HCL 2 MG/2 ML INJ ONE (07:03)
[2020-03-20] MEDS ORDERED: dexAMETHasone 10 MG/ML VIAL ONE (07:03)
[2020-03-20] MEDS ORDERED: EPHEDRINE SULF 50 MG/ML VIAL ONE (08:04)
[2020-03-20] MEDS ORDERED: LIDOCAINE JELLY 2%- 5 ML TUBE ONE (08:14)
[2020-03-20] MEDS ORDERED: COLLAGENASE 30 GM OINTMENT TOP ONE (08:14)
--- NOTE | 2020-03-20 09:39 | OP ---
Date of Procedure: 03/20/2020 Surgeon: Louis Massey MD Glass Embosser: None. Preoperative Diagnosis: Nonhealing wound, left below-knee amputation wound. Postoperative Diagnosis: Nonhealing wound, left below-knee amputation wound. Procedure: Debridement of left below-knee amputation wound 15 x 15 cm to subcutaneous tissue. Estimated Blood Loss: Minimal. Specimen: Necrotic tissue for culture and sensitivity. Findings: As above. Anesthesia: General. Complications: None. Disposition: The patient tolerated procedure in stable condition, taken to Recovery in good general condition. Procedure In Detail: The patient was brought to the OR and placed in supine position. General anest hesia was begun. Patient was prepped and draped in the usual sterile fashion. Patient had multiple sutures present, which were removed chromic and nylon. She also had necrotic graft that was present. The wound was debrided down through the subcu tissue. There was some bridging and uptake of the or iginal graft in the wound but a lot of debridement had to be done with a curette and scissors down th rough the subcutaneous tissue until good healthy tissue was obtained. Wound was irrigated. Bleeding was controlled with cautery and lidocaine mixed with Santyl. Sterile dressing was applied. The pat ient was awakened, taken to Recovery in good general condition. Discharge Note: The patient will go to day surgery and home when stable. Disposition: Home. Condition: Stable. Discharge Instructions: Resume home medications and diet. Activity as tolerated. No heavy lifting. Remove outer dressing and does wound care is ordered. Tylenol No. 3 one tablet p.o. q.4 p.r.n. yolanda n. Patient has home health. [facility] in my clinic. DAVID/JAEL Voice ID: [id number] Report ID: [id number]
[2020-03-20] MEDS ORDERED: HYDROCODONE/APAP 7.5/325 MG TAB ONE (10:14)
[2020-03-20 11:35] VITALS: BP 108/53; TEMP 98.2; O2SAT 98
== END 2020-03-20 10:45 | disposition home or self-care (01) ==
LOC: OR 06:30
PROVIDERS: ATTEND Surgery
PROC: 0JBM0ZZ Excision of Left Upper Leg Subcutaneous Tissue and Fascia, Open Approach (ICD-10-PCS; principal; 2020-03-20 07:30)
DX: T81.49XA Infection following a procedure, other surgical site, initial encounter (principal); L03.116 Cellulitis of left lower limb; Y83.8 Other surgical procedures as the cause of abnormal reaction of the patient, or of later complication, without mention of misadventure at the time of the procedure; L76.82 Other postprocedural complications of skin and subcutaneous tissue; I96 Gangrene, not elsewhere classified; Y83.2 Surgical operation with anastomosis, bypass or graft as the cause of abnormal reaction of the patient, or of later complication, without mention of misadventure at the time of the procedure; Z89.512 Acquired absence of left leg below knee
CPT/HCPCS: 93005; 87070; 85025; 80048; 36415; 87205; 88304; 87077; 87186; 87176; 71046; 11042; 11045 ×11; J2704; J3590; J2250; J3010; J1100; J0690; J7120; J2405